=== PATIENT | male | born 1985 | race Caucasian/White ===

== ENCOUNTER 2018-02-14 18:55 | Emergency (ER) | payer MEDICAID ==
[~2018-02-14 18:55] MED LIST: ZOFRAN ODT4 MG SL
[2018-02-14 20:24] VITALS: BP 132/75
== END 2018-02-14 20:24 | disposition home or self-care (01) ==
LOC: ED 18:55
DX: S83.91XA Sprain of unspecified site of right knee, initial encounter (principal); X50.9XXA Other and unspecified overexertion or strenuous movements or postures, initial encounter; Y93.89 Activity, other specified; Y92.89 Other specified places as the place of occurrence of the external cause; Y99.8 Other external cause status

== ENCOUNTER 2019-07-29 18:47 | Emergency (ER) | payer MEDICAID ==
[~2019-07-29] VITALS: Ht 177.8 cm; Wt 75.3 kg
[2019-07-29 19:11] VITALS: Ht 177.8 cm; Wt 75.3 kg
[2019-07-29 21:25] LABS: microscopic required? NO
[2019-07-29 21:30] LABS: BASOPHIL % 0.4 % (0-2); PLATELET COUNT 250 x10^3mcL (130-400); RED CELL DISTRIBUTION WIDTH 13.1 % (11.5-14.5)
[2019-07-29 22:00] LABS: urine erythrocyte NEGATIVE (NEGATIVE)
[2019-07-29 22:02] LABS: CALCIUM 8.5 mg/dL (8.5-10.1); CHLORIDE SERUM 101 mmol/L (98-107); CREATININE SERUM 0.9 mg/dL (0.7-1.3); GFR1 > 60 mL/min; GLUCOSE SERUM 103 mg/dL (74-106); POTASSIUM SERUM 3.9 mmol/L (3.5-5.1); SODIUM SERUM 139 mmol/L (136-145)
[2019-07-29 22:07] LABS: ALBUMIN 4.4 g/dL (3.4-5.0); ALKALINE PHOSPHATASE 74 U/L (46-116); ALT/SGPT 65 U/L (16-63); AST/SGOT 35 U/L (15-37); BILIRUBIN TOTAL 0.85 mg/dL (0.20-1.00); LIPASE 57 IU/L (73-393); TOTAL PROTEIN, SERUM 7.5 g/dL (6.4-8.2)
[2019-07-29 22:28] LABS: AMPHETAMINE QUAL UR NONE DETECTED (See below)
[2019-07-29 23:19] VITALS: BP 106/65
== END 2019-07-29 23:19 | disposition home or self-care (01) ==
LOC: ED 18:47
PROVIDERS: Emergency Medicine; Specialist
DX: R11.10 Vomiting, unspecified (principal); R19.7 Diarrhea, unspecified; R10.13 Epigastric pain
CPT/HCPCS: G0480; J2405; J7030; Q0092